=== PATIENT | female | born 1960 | race Caucasian/White ===

== ENCOUNTER 2022-02-27 06:32 | Inpatient (IN) | payer OTHER ==
[~2022-02-27] VITALS: Ht 167.6 cm; Wt 111.8 kg
[~2022-02-27 06:32] MED LIST: ESSENTIAL DAIL1 EACH PO; KONDREMUL2.5 ML/5 M PO; MOTRIN IB200 MG PO; NEURONTIN300 MG PO; NORCO 5-325 TA1 EACH PO; PERCOCET 5-3251 EACH PO; PROBIOTIC1 EAC1 PO; REGLAN10 MG PO; SENOKOT-S TABL1 EACH PO; TURMERIC500 M1 PO; VIACTIV SOFT C1 EACH PO
--- OUTSIDE RECORDS SUMMARY | 2022-02-27 06:35 | XMS ---
PreManage Notification: ESTELA SANCHEZ [facility] Events No recent Security Events currently on file [facility] There are no care providers on record at this time. Radha has no Care Guidelines for this patient. Ketan VISIT COUNT (12 MO.) 1 SAMUEL De La [place] TOTAL 1 NOTE: Visits indicate total known visits. ED/UCC VISIT TRACKING (12 MO.) 02/27/2022 06:33 SAMUEL Felix OR TYPE: Emergency COMPLAINT: - ABD PAIN, NAUSEA, SHIVERS, DIARRHEA INPATIENT VISIT TRACKING (12 MO.) No inpatient visits to display in this time frame [email or web address]
[2022-02-27] MEDS ORDERED: CIPRO500 MG PO (08:22)
[2022-02-27] MEDS ORDERED: METRONIDAZOLE500 MG PO ×2 (08:22→08:40)
--- NOTE | 2022-02-27 10:45 | NUR ---
Pt arrives to [facility] unit via stretcher, is able to transfer self to bed with somewhat unsteady gait, supervision recommended. IVF infusing WNL. VSS, A+O. Pt denies pain at this time. Hx and assessment complete. Ice water + ice chips provided per current diet order. Pt at bedside. Pt oriented to room/unit/call light system.
--- NOTE | 2022-02-27 13:18 | NUR ---
Call light answered, IV pump alarming, distal occlusion resolved. Pt states pain 4-5/10, 0.5mg dilaudid administered. IVF infusing WNL. Pt states that she feels "like I have a fever", oral temp 100.7. Pt tolerating small amounts clear liquid at this time. at bedside, both state no further needs. Call light in reach.
--- NOTE | 2022-02-27 13:43 | NUR ---
PT RESTING IN BED, LIGHT OFF AND RM QUIET. PT IS AWAKE, GAVE COMFORT AND BLESSING. WILL CONTINUE TO FOLLOW
--- NOTE | 2022-02-27 14:00 | NUR ---
It was a pleasure today to visit with Saima and her Tay. Both Saima and Tay are aware of her reason for admission, that she is receiving IV antibiotics and pain medication. Saima reports that the pain medicine "is really helping." Both Saima and Tay express appreciation for the care that Saima is receiving on the medical floor, and the care she did receive in the emergency department, expressing appreciation for the nurses and the ED physician. Saima is awake, alert, and oriented to person, place and time, and she is able to answer questions appropriately. Both Saima and Tay deny questions or needs at this time.
--- NOTE | 2022-02-27 14:18 | NUR ---
Scheduled ABX infusing. Pt resting in bed, eyes closed, awakens to this RN entry. Pt states no pain at this time. Assessment complete. Bowel tones active. Small amount PO intake of water noted. Pt states no nausea, no needs at this time.
--- NOTE | 2022-02-27 15:33 | NUR ---
Rounded on patient with Dr Walker. Pt states pain controlled at this time, SCDs in place, IVF infusing WNL. at bedside. All questions answered, call light in reach.
--- NOTE | 2022-02-27 16:47 | NUR ---
This RN called Dr Morales regarding order for PRN tylenol for pt temperature, new orders received and entered after verifying
--- NOTE | 2022-02-27 17:25 | NUR ---
PO tylenol and PRN dilaudid administered for 5/10 pain. Clear liquid tray at bedside. Pt resting in bed with IVF infusing WNL.
--- NOTE | 2022-02-27 19:39 | NUR ---
REPORT RECEIVED AT [facility]. PT IS AWAKE AND ALERT. IVF RUNNING. PT STATES HER PAIN IS MUCH BETTER AFTER TORADOL AND DILAUDID. CALL LIGHT IN REACH.
--- NOTE | 2022-02-27 20:15 | NUR ---
PT'S BP IS BELOW MD PARAMETERS. LEFT MESSSAGE FOR DR ROBINS ON HIS CELL PHONE OF PT SBP = 89.
--- NOTE | 2022-02-27 21:23 | HP ---
[facility] [address], [place] [address] Signed ADMISSION DATE: 02/27/2022 REASON FOR ADMISSION: Acute diverticulitis with microperforation. HISTORY OF PRESENT ILLNESS: This 61-year-old white woman is well known to me from the past. 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 She presented to the emergency room today at approximately 7:30 in the morning, was evaluated by Dr. Stratton. She has had complaints of left lower abdominal pain since yesterday. Evaluation showed an elevated white count of 16.6 and normal Chem profile and a CT scan of the abdomen was performed confirming acute diverticulitis. There was a small pocket of extraluminal gas, which was considered probably a small abscess. Interpreting radiologist was Dr. Falcon. The patient has been started initially on Cipro and Flagyl orally by Dr. Stratton and subsequently cefoxitin under my direction. Her pain is much improved with parenteral pain medication. She has had some nausea, but no vomiting. She has been allowed some clear liquids for comfort. PAST MEDICAL HISTORY: Does include obesity. 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 She has had emergency in the past. SOCIAL HISTORY: She is accompanied by her . 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 She has several grown children. REVIEW OF SYSTEMS: She denies any shortness of breath or chest pain. She has had no dysphagia, dysuria, or blood per rectum. PHYSICAL EXAMINATION: GENERAL: Pleasant white woman, who does not look systemically toxic at this time. VITAL SIGNS: Height is 5 feet 6 inches, weight 111.8 kg, BMI is 39.8. HEENT: Trachea is midline. She has no hoarseness. CHEST: Shows normal respiratory excursion. Electronically Signed By: RENNY ROBINS MD 02/27/22 2123 PATIENT NAME: ESTELA SANCHEZ HISTORY AND PHYSICAL DATE OF : 58 REPORT #: [id number] PHYSICIAN: RENNY ROBINS MD PCP: GIOVANI SINGH MD REPORT IS CONFIDENTIAL AND NOT TO BE RELEASED WITHOUT AUTHORIZATION [facility] [address], [place] [address] Signed HEART: Regular. ABDOMEN: Obese. She has a low midline incision, which is well healed. She has significant tenderness in the left lower quadrant. Right side is normal. She has no ascites. EXTREMITIES: Showed no clubbing, cyanosis, or edema. LABORATORY STUDIES: Showed white count of 16.6, hematocrit 45.8, platelets 279,000. Chem profile is normal. Glucose is 146, alkaline phosphatase 127, total protein 7.3, lipase 46. Urinalysis is normal. CT scan is reviewed as well as the report by Dr. Falcon, radiologist confirming normal lungs, liver, gallbladder, spleen, and other intraabdominal organs. There was no sign of free fluid or generalized free air. Inflammatory fat stranding was noted in the left pelvis adjacent to the sigmoid, where numerous diverticula are noted. A 15-mm bubble of gas is extraluminal consistent with small perforation. ASSESSMENT: Clinical findings and radiographic findings are highly consistent with acute diverticulitis with localized microperforation. She does not have generalized free air. She certainly does have tenderness. IV antibiotics have been initiated anticipating nonoperative approach at the moment. Sequential compression device stockings will be applied. We will allow clear liquids for comfort. We discussed the probability that showed having progressive improvement for which transition of oral antibiotics will be undertaken in due course. If worsening symptoms are noted, possibility of laparoscopic lavage and placement of drain versus emergency resection of sigmoid were also discussed though briefly as it is rather unlikely under the circumstances. Ultimately, she will need colonoscopy to affirm that there is no associated perforation of malignancy. She understands all these approaches and wished to proceed as we have described. MD SOURAV Kelley/MODL Electronically Signed By: RENNY ROBINS MD 02/27/222122 PATIENT NAME: ESTELA SANCHEZ HISTORY AND PHYSICAL DATE OF : 58 REPORT #: [id number] PHYSICIAN: RENNY ROBINS MD PCP: GIOVANI SINGH MD REPORT IS CONFIDENTIAL AND NOT TO BE RELEASED WITHOUT AUTHORIZATION [facility] [address], [place] [address] Signed /[id number] cc: Thomas Stratton MD Copies: THOMAS STRATTON MD ~ Electronically Signed By: RENNY ROBINS MD 02/27/222122 PATIENT NAME: ESTELA SANCHEZ HISTORY AND PHYSICAL DATE OF : 58 REPORT #: [id number] PHYSICIAN: RENNY ROBINS MD PCP: GIOVANI SINGH MD REPORT IS CONFIDENTIAL AND NOT TO BE RELEASED WITHOUT AUTHORIZATION
--- NOTE | 2022-02-27 23:17 | NUR ---
PT'S BP WAS 85/46 WITH A MAP OF 55. PT HAD SOME DIZZINESS WITH GETTING UP TO THE BATHROOM. DR ROBINS WAS CALLED AND A MESSAGE LEFT FOR HIM ON HIS CELL PHONE.
--- NOTE | 2022-02-28 02:05 | NUR ---
PT'S BP IS BACK TO NORMAL. PT DID NOT HAVE ANY DIZZINESS WHEN ASSISTED UP TO THE BATHROOM. HER PAIN IS 3/10 AND SHE WAS GIVEN IV TORADOL FOR THIS. A WARMED BLANKET WAS APPPLIED. PT REQUESTED AND WAS GIVEN AN ICE PACK FOR HER HEADACHE.
--- NOTE | 2022-02-28 05:40 | NUR ---
ASSISTED PT TO BATHROOM TO VOID, PAIN UPON MOVEMENT, BUT ONCE IN BED, VS COMPLETED, PT STATED THAT PAIN WAS IMPROVED AND DENIED PAIN NEEDS. SCD'S IN PLACE, FRESH ICE WATER GIVEN. COVERS PER CHOICE, PERSONAL SUPPLIES WITHIN REACH. NO OTHER NEEDS AT THIS TIME.
--- NOTE | 2022-02-28 06:36 | NUR ---
PTP UP TO BATHROOM WITH SBA. PT TOLERTAED THIS WELL. WARMED BLANKET APPLIED AFTER GETTING BACK TO BED. CALL LIGHT IN REACH.
--- NOTE | 2022-02-28 07:15 | NUR ---
Report received from Leni NOEL. Pt resting in bed, IV pump alarming, resolved. Pt states no needs at this time, denies pain. Call light in reach, will continue plan of care.
--- NOTE | 2022-02-28 07:55 | NUR ---
Scheduled medications administered, PRN toradol given, pt oral temperature 101.8. Pt ambulated to with SBA, IVF infusing WNL. Lung sounds clear, HRR, bowel tones active. Tolerating small amounts of clear liquids. Linens changed. Pt has no further needs at this time, call light in reach
--- NOTE | 2022-02-28 09:50 | NUR ---
Pt medicated with PRN tylenol for low grade fever of 99.8
--- NOTE | 2022-02-28 10:51 | NUR ---
CHECKING ON PT-WRAPPED UP IN BEDDING. PT SAID SHE IS FEVERISH, AND SLIGHT NAUSEA. INFORMED BERT MORALES, SHE WILL FOLLOW UP. GAVE ENCOURAGEMENT, BLESSING
--- NOTE | 2022-02-28 11:45 | NUR ---
Spoke with Saima. She cont. to not feel well. States she has fever and has pain.
--- NOTE | 2022-02-28 11:45 | NUR ---
Pt provided with ice pack for comfort, daughter at bedside, request bedside fan, provided. IVF infusing WNL. No needs at this time.
--- NOTE | 2022-02-28 14:36 | NUR ---
Rounded on patient who is resting in bed, daughter at bedside. She states pain or needs at this time. IVF infusing WNL. Call light in reach.
--- NOTE | 2022-02-28 15:46 | NUR ---
Patient c/o feeling hot then chilled. States care has been good today. States that her pain level "is good right now" Shares that if she calls and asks staff is bringing medications to relieve pain. has not been here yet today, but states that he will be in later. She understands her plan of care based on what Dr. Walker has explained to her at this time. Pt denies concerns beyond her fever at this time. Pt RN is notified regarding fever for medication management.
--- NOTE | 2022-02-28 15:50 | NUR ---
Notified of patient temperature. IV toradol administered, cool cloth for forehead, blankets removed, and pt demonstrates using I.S. several times. Will round to check temperature shortly.
--- NOTE | 2022-02-28 16:13 | NUR ---
Pt temperature down to 100.4. Pt resting in bed with cool cloth over eyes. Pt states "I feel like I'm coming down now", reports no pain.
--- NOTE | 2022-02-28 16:32 | NUR ---
Notified Dr Walker regarding pt temperature fluctuation.
--- NOTE | 2022-02-28 18:42 | NUR ---
Pt finished with shower and reconnected to IVF, infusing WNL. Temp WNL. Pt states no pain or nausea and no needs. Tray cleared. at bedside. Call light in reach.
--- NOTE | 2022-02-28 19:27 | NUR ---
REPORT RECEIVED ON PT . SHE DENIES PAIN. IS AWAKE AND ALERT. IV IS PATENT. CALL LIGHT IN REACH. NO NEEDS AT THIS TIME.
--- NOTE | 2022-02-28 20:15 | NUR ---
PT IS ASSISTED UP TO THE BATHROOM. GAIT IS STEADY. DENIES ANY DIZZINESS. SHE IS VOIDING FREELY.PT STATES HER PAIN IS 1-12 AFTER AMBULATING AND DOES NOT REQUIRE ANYTHING FOR PAIN. PT FEELS THOUGH SHE MAY HAVE A BM AND REQUESTED THE SCDS OFF FOR NOW. CALL LIGHT IN REACH.
--- NOTE | 2022-02-28 23:22 | NUR ---
PT C/O HEADACHE AND RIGHT SIDED ABD PAIN .RATED HER PAIN 5/10. PT WAS GIVEN TYLENOL AND TORADOL FOR PAINS. SHE WAS ALSO GIVEN AN ICE PACK FOR THE BACK OF HER NECK FOR COMFORT. PT REPORTED SOME SLIGHT NAUSEA BUT REFUSED AN ANTIEMETIC. CALL LIGHT IN REACH.
--- NOTE | 2022-03-01 01:03 | NUR ---
PT APPEARS TO ASLEEP LYING ON HER LEFT SIDE. CALL LIGHT IN REACH.
--- NOTE | 2022-03-01 06:47 | NUR ---
PT HAS NOT SPIKED A TEMP THIS SHIFT. HER VITAL SIGNS HAVE BEEN STABLE. SHE HAS VOIDED ORANGE COLORED URINE AND HAD SEVERAL SMALL LOOSE BMS. PT WAS MEDICATED FOR PAIN WITH TORADOL X1 DOSE WITH EFFECTIVE PAIN RELIEF. SHE IS REQUESTING HER GABAPENTIN BE RESTARTED. PT HAS TOLERATED HER ORAL ABX.
--- NOTE | 2022-03-01 08:40 | NUR ---
PT ASSESSMENT COMPLETED. MEDICATIONS GIVEN. TYLENOL GIVEN FOR STONE. PT IS A/O. CALL LIGHT WITHIN REACH.
--- NOTE | 2022-03-01 10:09 | NUR ---
PT RESTING COMFORTABLY. A/O, CALL LIGHT WITHIN REACH. DISCUSSED POSSIBILITY OF DOING LAB WORK THIS MORNING AND RESTARTING GABAPENTIN 300MG PO AT NIGHT. THIS RN LEFT MESSAGE WITH DR SHELBY OFFICE REGARDING [facility] AND RESTARTING GABAPENTIN.
--- NOTE | 2022-03-01 10:28 | NUR ---
BROUGHT PATIENT A NEW CUP OF ICE WATER ALSO SOME CRANBERRY JUICE.
--- NOTE | 2022-03-01 10:40 | NUR ---
ASKED PATIENT IF SHE WOULD LIKE TO TAKE A SHOWER TODAY AND SHE SAID NO BECAUSE SHE TOOK A GOOD ONE YESTERDAY.
--- NOTE | 2022-03-01 12:00 | NUR ---
Spoke with pt and she states she is feeling better. No change in plan for dc to home with spouse when cleared medically.
--- NOTE | 2022-03-01 12:06 | NUR ---
TO PT ROOM FOR MEDICATION ADMINISTRATION. PT A/O, T 98.2. PLANNING ON WALK IN THE KNOW[place] TODAY. CALL LIGHT WITHIN REACH. DAUGHTER AT BEDSIDE.
--- NOTE | 2022-03-01 13:41 | NUR ---
PT SITTING UP IN BED VISITING WITH DAUGHTER CARLA AT . PT STATED SHE FEELS BETTER TODAY. HAD PLEASANT VISIT-PT ALERT AND ORIENTED. GAVE BLESSING, WILL FOLLOW
--- NOTE | 2022-03-01 15:00 | NUR ---
TO PT ROOM FOR ASSESSMENT. PROVIDER ORDERED [facility]. LABS DRAWN. AT BEDSIDE. CALL LIGHT WITHIN REACH.
--- NOTE | 2022-03-01 15:47 | NUR ---
PATIENT WALKED 2 LAPS AROUND MED SURG THIS MORNING. AND ONE LAP AROUND MED SURG. WITH HER GUEST. THIS AFTERNOON.
--- NOTE | 2022-03-01 15:50 | NUR ---
PT REQUEST FOR TEMP CHECK AFTER WALKING LAPS IN THE KNOWLES FELT CHILLED. T 99.4. ALSO STATED ABDOMINAL PAIN INCREASED TO 6/10. TORADOL GIVEN. PT RESTING ON LEFT SIDE IN BED. AT BEDSIDE. CALL LIGHT WITHIN REACH. IV FLUIDS RUNNING.
--- NOTE | 2022-03-01 19:53 | NUR ---
RECEIVED REPORT FROM DAY SHIFT RN. PATIENT IS RESTING IN BED ON PHONE. NO NEEDS NOTED. CALL LIGHT IN REACH.
--- NOTE | 2022-03-01 20:02 | NUR ---
IV PUMP ALARMING, NEW BAG IV FLUIDS HUNG AND INFUSING DIRECTED. IV SITE WNL, pt DENEIS NEEDS OR CONCERNS. CALL LIGHT IN REACH. PRIMARY RN AWARE.
--- NOTE | 2022-03-01 20:42 | NUR ---
PATIENT ASSESEMENT COMPLETED. VITALS TAKEN AND RECORDED. INTAKE AND OUTPUT RECORDED. PM MEDS GIVEN PER ORDER. PATIENT DENIES ANY PAIN OR NAUSEA. IV INFUSING PER ORDER. PATIENT HAS ACTIVE BOWEL TONES. PATIENT IS RESTING IN BED. PATIENT DENIES ANY FURTHER NEEDS. CALL LIGHT IN REACH. PATIENT IS AAOX4.
--- NOTE | 2022-03-01 23:00 | NUR ---
PATIENT REPORTS FEELING "YUCKY". PATIENTS TEMP TAKEN AND RECORDED. PATIENT GIVEN PRN TYLENOL. PATIENT GIVEN SEVEN UP AND CRACKERS. NO FURTHER NEEDS NOTED. CALL LIGHT IN REACH.
--- NOTE | 2022-03-02 01:22 | NUR ---
PATIENT IS RESTING IN BED WITH EYES CLSOED, RR 16. CALL LIGHT IN REACH.
--- NOTE | 2022-03-02 02:09 | NUR ---
PATIENT IS RESTING IN BED WITH EYES CLSOED, RR 18. CALL LIGHT IN REACH.
--- NOTE | 2022-03-02 04:26 | NUR ---
PATIENT CALLED AND REQUESTED TEMP BE TAKEN. PATIENTS TEMP IS 98.9 ORALLY. PATIENT RECENTLY UP TO BR AND HAD BM. PATIENT RATES PAIN AT A 2/10 AND DENIES THE NEED FOR PAIN MEDICATION AT THIS TIME. PATIENT DENIES ANY NAUSEA. NO FURTHER NEEDS NOTED. CALL LIGHT IN REACH.
--- NOTE | 2022-03-02 05:29 | NUR ---
AM VITALS TAKEN AND RECORDED. INTAKE AND OUTPUT RECORDED. PATIENT DENIES ANY PAIN. PATIENT REPORTS FEELING "YUCKY". TEMP AT 99.1 PATIENT STATED "I FEEL LIKE ITS GONNA GO HIGHER", PRN TYLENOL GIVEN PER ORDER. FRESH ICE WATER GIVEN. IV INFUSING PER ORDER. NO FURTHER NEEDS NOTED. CALL LIGHT IN REACH.
--- NOTE | 2022-03-02 07:22 | NUR ---
REPORT RECEIVED FROM BERT SMART. PT RESTING IN BED ON LEFT SIDE WITH EYES CLOSED. RESPIRATIONS EVEN AND UNLABORED. BED RAILS UP. CALL LIGHT WITHIN REACH. PT ALLOWED TO REST.
--- NOTE | 2022-03-02 07:30 | NUR ---
PT CALL LIGHT ON. PT REQUESTS ASSTANCE FINDING HER GLASSES. PT ASSISTED. PT UPDATED ON PLAN FOR DISCHARGE. PT REQUESTS TO GET DRESSED. IV DC'D PER PROTOCOL. GAUZE AND COBAN APPLIED. PT UP IN ROOM, NO ASSISTANCE NEEDED, STEADY ON FEET. CALL LIGHT WITHIN REACH. PT UPDATEDON PLAN FOR DISCHRAGE. PT VERBALIZES UNDERSTANDING AND STATES HER QUESTIONS HAVE BEEN ANSWERED. NO ADDITIONAL NEEDS AT THIS TIME.
--- NOTE | 2022-03-02 08:46 | NUR ---
MORNING ASSESSMENT AND MEDICATION DUE. PT UP TO COUCH EATING BREAKFAST. PT DENIES PAIN AND NAUSEA "UNLESS I PUSH ON IT." PT REPORTS 2/10 PAIN IN LLQ OF ABDOMEN IF SHE PUSHES ON THIS AREA. PT STATES "OH, IT'S A LOT BETTER THAN IT WAS." PT REQUESTS HER TEMPERATURE BE ASSESSED, 98.1 ORALLY. PT ALERT AND OREINTED TO ALL. PT STEADY ON FEET WITH NO ASSISTANCE NEEDED WHILE IN THE ROOM. LUNG SOUNDS CLEAR. HEART TONES REGULAR. STRONG PULSES NOTED IN ALL EXTREMITIES. LLE REMAINS NUMB PER PTS BASELINE. NON SLIP SOCKS IN PLACE. BOWEL TONES ACTIVE. ABOMDEN SOFT. PT REPORTS ONE LOOSE STOOL "EARLY THIS MORNING." PT REPORTS MILD DISTENTION TO ABOMDEN CONTINUES. PT ON THE PHONE WITH HER WHO IS COMING TO PICK HER UP. PHARMACIST TO BEDSIDE TO REVIEW MEDICAITONS WITH PT. PT DENIES ADDITONAL NEEDS AT THIS TIME. CALL LIGHT WITHIN REACH.
--- NOTE | 2022-03-02 09:52 | NUR ---
PT READY FOR DISCHARGE. PT DRESSED SELF, NO ASSISTANCE NEEDED. PT RESTING IN BED, ON LEFT SIDE, PT REPORTS 6/10 PAIN IN LEFT LOWER QUADRANT. PAIN MEDICAITON OFFERED. PT DECLINES STATING SHE WILL "TAKE IBUPROFEN WHEN I GET HOME." DISCHRAGE INSTRUCTIONS REVIEWED WITH PT. PT VERBALIZES UNDERSTANDING OF INSTRUCTIONS, MEDICATIONS AND FOLLOW UP AND STATES HER QUESTIONS HAVE BEEN ANSWERED. PT DENEIS ADDITIONAL NEEDS AT THIS TIME. AWAITING 'S ARRIVAL. CALL LIGHT WITHIN REACH.
--- NOTE | 2022-03-02 10:24 | NUR ---
DISCHARGE ORDER WRITTEN FOR PATIENT. PATIENT TO DISCHARGE HOME WITH HER FAMILY TODAY.
--- NOTE | 2022-03-02 10:45 | NUR ---
PTS ARRIVED. PT REPORTS SHE WOULD LIKE TO REST FOR A FEW MORE MINUTES PRIOR TO DISCHRAGE. PT RPEORTS PAIN IN LLQ CONTINUES AT 5-6/10. PT STATES SHE TOOK A HOME DOES OF IBUPROFEN AND WANTS TO SEE "IF IT KICKS IN." PT ADVISED NOT TO TAKE MEDICATIONS FROM HOME WITHOUT LETTING STAFF AND MD KNOW. PT VERBALIZES UNDERSTANDING. PT ALOWED TO REST. CALL LIGHT WITHIN REACH. BED RAILS UP. AT BEDSIDE.
--- NOTE | 2022-03-02 10:50 | NUR ---
PT ALERT, ORIENTED AND RESTING COMFORTABLY IN QUIET RM. REQUESTED LIGHTS OFF. PLAN TO DC TODAY, WILL BE HERE FOR DC. GAVE BLESSING AND WILL FOLLOW.
--- NOTE | 2022-03-02 10:50 | NUR ---
PATIENT AND IN ROOM. SHE MAY GO HOME TODAY BUT SHE MAY DECIDE TO STAY BECAUSE OF ABDOMINAL PAIN. I PROVIDED HER A HANDOUT FROM THE [facility] ON FIBER-RESTRICTED DIET. LISTS WITH FOODS RECOMMENDED AND FOODS NOT RECOMMENDED PROVIDED. SAMPLE MENUS ALSO PROVIDED. VERBAL REVIEW OF SOME FOODS TO AVOID AND WHICH FOODS WOULD BE FINE. I ALSO EXPLAINED THIS DIET IS TEMPORARY. IT IS TO ALLOW THE GUT TO HEAL. PATIENT AND HAVE GOOD UNDERSTANDING. MY NAME AND OFFICE # PROVIDED IN CASE FURTHER QUESTIONS ARISE.
[2022-03-02] MEDS ORDERED: CIPRO500 MG PO (11:17)
[2022-03-02] MEDS ORDERED: FLAGYL375 MG PO (11:18)
--- NOTE | 2022-03-02 11:18 | NUR ---
THIS RN TO ROOM TO CHECK ON PT. PT STATES HER HOME IBUPROFEN "DIDN'T WORK WELL I HAD HOPED." PT RATES LLQ PAIN AT 5/10. LLQ TENDER TO TOUCH. DR. RHODES CALLED AND UPDATED. NEW ORDERS PLACED. PT ADVISED THAT MD RECCOMENDS SHE STAYS TO RECEIVE FURTHER TREATMENT. ORDERS ENTERED AND REPEAT BACK PERFORMED.
--- NOTE | 2022-03-02 11:49 | NUR ---
NEW MEDICATIONS READY. IV STARTED IN RIGHT HAND PER PROTOCOL, BRISK BLOOD RETURN NOTED. IV FLUIDS AND ABX STARTED. PT REPORTS ONGOING 5/10 PAIN IN LLQ THAT IS "SQUEEZING TWISTING PAIN." TYELNOL GIVEN. ORDERS TO MAKE PT NPO. PT MADE NPO AFTER TYLENOL DOSE. PT UPDATED ON PLAN OF CARE AND VERBALIZES UNDESTANDING. PT STATES SHE FEELS "BETTER ABOUT STAYING." BOWEL TONES ACTIVE ALTHOUGH HYPOACTIVE IN LLQ. MILD DISTENTION CONTINUES. ABDOMEN SOFT BUT TENDER ESPICIALLY IN LLQ. PT DENEIS ADDITONAL REQUESTS OR COMPLAINTS. AT BEDSIDE AND VERBALIZES UNDERSTANDING OF PLAN OF CARE. NO ADDITIONAL NEEDS AT THIS TIME. CALL LIGHT WITHIN REACH. BED RAILS UP.
--- NOTE | 2022-03-02 12:15 | NUR ---
DR RHODES CALLED WITH UPDATE ON PT AND TO CLARIFY ORDERS PER PHARMACIST. NO ANSWER AT THIS TIME. AWAITING CALL BACK.
--- NOTE | 2022-03-02 13:18 | NUR ---
AFTERNOON ASSESSMENT DUE. THIS RN TO ROOM TO CHECK ON PT. PT CONTINUES RESTING ON LEFT SIDE IN BED. PT REPORTS PAIN IS IMPROVING IN LLQ OF ABDOMEN AND "WAS BETTER WITH REST BUT THEN WORSE WITH MY BOWEL MOVEMENT." PT REPORTS 3/10 PAIN IN LEFT LOWER QUADRANT. PT DENIES NEED FOR ADDTIONAL PAIN MEDICATION AT THIS TIME. PT DENIES NASUEA. PT ALERT AND OREINTED TO ALL. HEART TONES REGULAR. LUNG SOUNDS CLEAR. NUMBNESS TO LLE CONTINUES PER PT BASELINE. +1 PITTING EDEMA NOTED IN LLE WELL. PT STATES "YEAH MY LEFT LEG IS USUALY ABOUT AN INCH BEGGER THAN THE RIGHT." ABDOMEN REMAINS SOFT. MILDY DISTENDED PER PT. BOWEL TONES ACTIVE BUT HYPOACTIVE IN LLQ. ABDOMEN REMAINS TENDER IN LLQ WITH PALPATION. PT VOIDING LARGE AMOUNTS OF CLEAR YELLOW URINE. VITAL SIGNS STABLE. REDNESS NOTED UNDER PANNUS. BARRIER CREAM APPLIED. ICE WATER PROVIDED. PT UPDATED ON PLAN OF CARE. NO ADDITONAL REQUESTS OR COMPLAINTS. CALL LIGHT WITHIN REACH. AT BEDSIDE.
--- NOTE | 2022-03-02 14:16 | NUR ---
MEDICATION DUE. THIS RN TO ROOM TO CHECK ON PT. PT UP TO RESTROOM, INDEPENDANT, NO ASSISTANCE NEEDED, STEADY ON FEET. PT REPORTS PAIN IS "MUCH BETTER" NOW 2/10 IN LEFT LOWER QUADRANT. PT DENIES NEED FOR ADDITIONAL PAIN MEDICATION. IV ASSESSED, WNL. IV ABX STARTED. NO ADDITIONAL REQUESTS OR COMPLAINTS. CALL LIGHT WITHIN REACH. BED RAILS UP.
--- NOTE | 2022-03-02 15:25 | NUR ---
THIS RN TO ROOM TO CHECK ON PT. PT GETTING SELF UP TO RESTROOM. PT PASSES LARGE AMOUNTS OF GAS AND HAS SMALL BOWEL MOVEMENT. PT REPORTS PAIN IS WELL CONTROLED AT 3/10 IN LEFT LOWER QUADRANT. PT DENIES NEED FOR PAIN MEDICATION AT THIS TIME. PT DENIES NASUEA. PT BACK TO BED. NO ADDITONAL REQUESTS OR COMPLAINTS. CALL LIGHT WITHIN REACH. AT BEDSIDE.
--- NOTE | 2022-03-02 15:58 | NUR ---
PT SCHEDULED FOR DISCHRAGE THIS SHIFT BUT BEGAIN TO HAVE WORSENING SYMPTOMS, PT CONTINUES TO STAY INPATIENT FOR ACUTE DIVERTICULITIS. PT UP WITH STAND BY ASSIST AND INDEPENDANT IN ROOM. PT NOW ON CLEAR LIQUID DIET FOR BOWEL REST. BOWEL TONES ACTIVE, ABDOMEN SOFT BUT TENDER TO TOUCH. BOWEL MOVEMENTS LESS FREQUENT THIS SHIFT ALTHOUGH STILL SOFT/LOOSE. PT REPORTS 0-6/10 PAIN IN LLQ THIS SHIFT, CONTROLED WITH TYELNOL. PT ALSO NOTED TO HAVE TAKEN A HOME DOES OF IBUPROFEN THIS SHIFT, EDUCATION DONE. IV FLUIDS STARTED. IV ABX ORDERED. PT VOIDING QUANITTY SUFFICIENT. PT USES CALL LIGHT AND MAKES NEEDS KNOWN.
--- NOTE | 2022-03-02 17:02 | NUR ---
THIS RN TO ROOM TO CHECK ON PT. PT REPORTS ABDOMINAL PAIN IN LLQ HAS INCREASED AND IS NOW /. PT REPORTS THIS INCREASE "JUST HAPPENED RECENTLY." TORADOL NO LONGER ON OCT. DR. RHODES CONSULTED AND STATES TO ADD TORADOL BACK TO OCT, ORDERS ENTERED AND REPEAT BACK PERFORMED. TRISH LUCAS CALLED FOR CLARIFICATION AND TO ENSURE ONLY 5 DAYS OF TORADOL IS SCHEULED. DR. RHODES ALSO CONSULTED REGARDING REDNESS UNDER PANNUS. ORDERS FOR MICONAZOLE POWDER GIVEN. PT UP TO RESTROOM INDEPENDANTLY. PT REPORTS NASUEA "PROBABLY FROM THE PAIN." SEE MAR FOR MEDICATIONS GIVEN. PT DENIES ADDITIONAL REQUESTS OR COMPLAINTS. CALL LIGHT WITHIN REACH. BED RAILS UP.
--- NOTE | 2022-03-02 17:50 | NUR ---
THIS RN TO ROOM TO CHECK ON PT. PT CONTINUES TO HAVE 8-10/10 PAIN IN ABODMEN AND NAUSEA. SEE MAR FOR MEDICATION GIVEN. BOWEL TONES HEARD. ABDOMEN NOW APPEARS MODERATLY DISTENDED. PT PALE. VITAL SIGNS STABLE. PT TEARFUL AT TIMES. DR. RHODES CALLED AND UPDATED. NEW ORDERS GIVEN FOR CT SCAN WITH CONTRAST. ORDERS ENTERED. REPEAT BACK PERFORMED. PT UPDATED ON PLAN OF CARE. PT RESTING ON LEFT SIDE, NO ADDITONAL NEEDS AT THIS TIME. CALL LIGHT WITHIN REACH.
--- NOTE | 2022-03-02 18:05 | NUR ---
DR RHODES CALLED TO FLOOR WITH VERBAL ORDERS FOR STAT CBC AND CBC AT 0600 TOMORROW. READ BACK FOR VERIFICATION DONE. ORDERS PLACED.
--- NOTE | 2022-03-02 18:15 | NUR ---
GASTROGRAPHEN GIVEN ORDERED. PTS TEMPERATURE NOTED TO BE RISING. PT HAS SHAKING RIGERS CHILLS. DR. RHODES CALLED AND UPDATED AND ORDERS PLACED FOR BLOOD CULTURES. NO LACTIC PER MD ORDER. LABS DRAWN PER PROTOCOL WITH 7ML DRAW USING 22G BUTTER FLY NEEDLE FROM RIGHT HAND FOR FIRST SET OF CULTURES. AND 15ML DRAW FROM LEFT AC FOR 2ND SET OF BLOOD CULTURES AND CBC. LABS SENT PER PROTOCOL. CT UPDATED ON TIMING OF GASTRO GRAPHEN. TYLENOL GIVEN (SEE MAR). PT RESTING IN BED. NO ADDITONAL NEEDS AT THIS TIME. CALL LIGHT WIHTIN REACH. BED RAILS UP.
--- NOTE | 2022-03-02 20:10 | NUR ---
IV PUMP ALARMING, ISSUE RESOLVED. IV SITE WNL, FLUSHES EASILY. BLOOD RETURN NOTED. pt SALINE LOCKED FOR ORDERED CT EXAM. VS AND I&O'S COLLECTED. pt COMPLETED SECOND AND FINAL ORAL CONTRAST. ASSESSMENT COMPLETE, pt REPORTS VERY MINIMAL ABD PAIN AND FEELS LIKE HER ABD DISTENTION IS IMPROVED. pt STATES, "I THINK IT FEELS A LITTLE SOFTER". ALSO IN ROOM. pt TRANSERRED SELF INTO WC AND BETHANIE FROM IMAGING TO TAKE pt FOR CT EXAM.
--- NOTE | 2022-03-02 20:40 | NUR ---
pt returned from imaging, awaiting results. eelvated temp noted, excess blankets removed and pt demonstrated use of is. cool rag to forehead and pt/ educated. both verbalized understanding. will continue to monitor temp. iv fluids resumed per md orders and iv abd infusing as directed. iv site remains wnl. fresh ice water provided, call light in reach.
--- NOTE | 2022-03-02 21:52 | NUR ---
DR RHODES MADE AWARE OF IMAGING RESULTS BY IMAGING DEPARTMENT. DR RHODES IN ROOM AND DISCUSSING POC OPTIONS WITH pt. NEW BAG IV FLUIDS INFUSING DIRECTED, IV SITE WNL. CALL LIGHT IN REACH.
--- NOTE | 2022-03-02 22:10 | NUR ---
VERBAL ORDER READ BACK FROM DR RHODES TO TITRATE IV FLUIDS-D5LR FROM 100MLS/HR TO 150MLS/HR AND TO MAKE pt NPO, OKAY TO TAKE SIP OF WATER W/ MEDS PER DR RHODES. FLUIDS TITRATED AT THIS TIME, IV SITE REMAINS WNL. pt NPO- DOG BEHAVIORIST UPDATED AT THIS TIME. DR RHODES ALSO MADE AWARE OF ELEVATED TEMP OF 100.4.
--- NOTE | 2022-03-02 23:06 | NUR ---
CALL LIGHT ANSWERED, pt WISHES TO HAVE SCD'S OFF AT THIS TIEM SO SHE CAN AMBULATE INDEPENDENTLY BACK AND FORTH TO ABTHROOM NEEDED, pt STEADY ON FEET. pt STATES, "I'M FEELING PRETTY GOOD RIGHT NOW", NO FURTHER NEEDS, CALL LIGHT IN REACH.
--- NOTE | 2022-03-03 00:01 | NUR ---
ROUNDED ON pt, pt AWOKE TO VOICE. TEMP CHECKED, RESULT OF 98.3. pt STATES, "I FEEL REALLY GOOD RIGHT NOW". NO ADDITIONAL NEEDS OR CONCERNS, CALL LIGHT IN REACH.
--- NOTE | 2022-03-03 01:05 | NUR ---
CALL LIGHT ANSWERED, pt AWAKE AND REPORTS INCONTINENT BM. KAYLA CARE DONE AND UPON ENTERING ROOM pt WAS FOUND AWAKE AND MAKING BED ON HER OWN. pt STATES, "I'M JUST SO SURPRISED BY HOW GOOD I FEEL RIGHT NOW". pt INTERACTIVE AND SMILING WITH STAFF. pt EDUCATED ON POC FOR REMAINING SHIFT AND NOT TO OVER WORK. PARTIAL BED CHANGE COMPLETE, NO NEW NEEDS OR CONCERNS. IV SITE REMAINS WNL, FLUIDS INFUSING DIRECTED. CALL LIGHT IN REACH. pt VOIDED 425MLS DARK YELLOW URINE.
--- NOTE | 2022-03-03 02:23 | NUR ---
rounded on pt, pt awoke to voice. denies pain and nausea, some abd tenderness noted with palpation. bowel tones active, scattered bruises noted to lower abd d/t antocoagulant injections. scd's remains off per pt request, education provided. no acute changes. scheduled iv abx infusing as directed, iv site reamsin wnl. call light in reach.
--- NOTE | 2022-03-03 06:05 | NUR ---
NEW BAG IV FLIDS HUNG AND INFUSING DIRECTED. IV SITE WNL, PRN NAUSEA MEDICATION GIVEN (SEE EMAR. VSS AND I&O'S COMPLETE. pt AFEBRILE. pt REMAINS NPO. PREOP EKG COMPLETE ALONG WITH PREOP [place]. COMPLETE BED LINEN CHANGE ALSO DONE. NO FURTHER NEEDS, CALL LIGHT IN REACH.
--- NOTE | 2022-03-03 06:40 | NUR ---
DR RHODES MADE AWARE OF MORNING LABS RESULTS- 3.3 POTASSIUM AND 1.[address] MD [address] PL[address] ORDERS.
--- NOTE | 2022-03-03 06:55 | NUR ---
ordered x1 iv magnesium infusing as directed, iv site remains wnl. pharmacy to mix ordered potassium then bring to floor.
--- NOTE | 2022-03-03 07:30 | NUR ---
THIS RN RECEIVED SHIFT REPORT FROM BERT ROTH. PATIENT GETTING UP TO THE RESTROOM WITH HER . PATIENT IS READY TO GO TO SURGERY AT 8AM.
--- NOTE | 2022-03-03 08:10 | NUR ---
OR STAF HERE TAKING PATIENT TO OR IN THE HOSPITAL BED. SCD'S IN PLACE. AM ANTIBIOTIC AND K+ RIDER SENT WITH OR STAFF TO BE GIVEN.
--- NOTE | 2022-03-03 11:14 | NUR ---
PATIENT HAS NO RETURNED FROM OR AT THIS TIME.
--- NOTE | 2022-03-03 12:28 | NUR ---
JUST INFORMED THIS PATIENT WILL BE GOING TO CCU ON RETURN FROM OR.
--- NOTE | 2022-03-03 12:54 | NUR ---
REPORT RECEIVED FROM BERT BRODERICK. AWAITINGS PTS ARRIVAL FROM PACU.
--- NOTE | 2022-03-03 13:13 | EKG ---
[facility] [address] [facility] [address] [place], [place] [address] Signed Normal sinus rhythm Normal ECG When compared with ECG of 28-JAN-2017 16:13, No significant change was found Confirmed by MICHAEL GASCA MD ([id number]) on 03/03/2022 1:12:55 PM Electronically Signed By: MICHAEL GASCA MD 03/03/22 1313 PATIENT NAME: ESTELA SANCHEZ Electrocardiogram DATE OF : 58 PHYSICIAN: MICHAEL GASCA MD REPORT #: [id number] REPORT IS CONFIDENTIAL AND NOT TO BE RELEASED WITHOUT AUTHORIZATION
--- NOTE | 2022-03-03 13:24 | NUR ---
PT ARRIVED FROM PACU. HEVER, PRODUCT MANAGENT INTERN, AT BEDSIDE WITH PT. REPORT RECEIVED FROM KEATON LAWSON, AND BERT KATHLEEN. TELEMETRY MONITORING PLACED. DR. RHODES CONSULTED REGARDING X-RAY FOR CENTRAL LINE PLACMENT VARIFICATION. ORDER PLACED. X-RAY CALLED. HEVER REMAINS AT PTS BEDSIDE FOR RECOVERY.
--- NOTE | 2022-03-03 13:35 | NUR ---
NG TUBE PLACED TO LOW INTERMITTANT SUCTION. X-RAY TO BEDSIDE FOR CENTRAL LINE AND NG TUBE PLACEMENT VARIFICATION.
--- NOTE | 2022-03-03 13:48 | NUR ---
03/03/22 1348 Debra Vázquez 1317-PATIENT TO ROOM 126 IN CCU ON 10L VIA MAKK. PATIENT IS NONAROUSABLE TO TACTILE STIMULI. PATIENT HAS AN OPA IN PLACE. THIS RN DOING JAW THRUST TO MAINTAIN AIRWAY. 1320-PATIENT OPENS EYES OCCASIONALLY. THIS RN DOING JAW THRUST TO MAINTAIN AIRWAY. PATIENT ON 10L VIA MASK. 1323-PATIENT OPENS EYES OCCAISONALLY. DOESNT FOLLOW COMMANDS, OPA REMAINS IN PLACE. HOB ELEVATED AND PILLOW ADJUISTED. JAW THRUST COMPLETE. 1325-PATIENT OPENS EYES THEN OPENS MOUTH AND OPA REMOVED. RESP EVEN AND UNLABORED. O2 SATS MID 90'S ON 10L VIA MASK. 1328-PATIENT 02 SATS DECREASE TO 83%. PATIENT ENCOURAGED TO TAKE DEEP BREATHS. O2 SATS INCREASE TO 92% ON 10L VIA MASK. 1330-PATIENT OPENS EYES OCCASIONALLY. RESP EVEN AND UNLABORED. 1337-PATIENT IS REACTIVE TO VERABL STIMULI. SHAKES HEAD NO WHEN ASKED ABOUT PAIN AND NAUSEA. 1340-PATIENT RESTING IN BED WITH EYES CLOSE. RESP EVEN AND UNLABORED. ON SATS IN THE MID 90'S ON 10L VIA MASK 1345-CCU NURSE CHANGING CENTRAL LINE DRESSING. DECREASED TO 6L VIA MASK. O2 SATS REMAIN IN THE MID 90'S. RESP EVEN AND UNLABORED.
--- NOTE | 2022-03-03 14:10 | NUR ---
HEVER, MARKETING SERVICES VICE PRESIDENT FINISHED WITH RECOVERY. REPORT RECEIVED FROM HEVER. PT AWAKEN AND ORENITED ALTHOUGH DROWSY. DR. RHODES TO BEDSIDE AND GIVES VERBAL ORDER THAT CENTRAL LINE IS OK TO USE AND NG TUBE IS CORRECTLY PLACED. PT EPORTS 4/10 PAIN IN LLQ, SEE MAR FOR MEDIATION GIVEN. IV SALINE SITE FLUSHED AND SALINE LOCKED, ALCOHOL CAP APPLIED. CENTRAL LINE ASSESSED, BRISK BLOOD RETURN NOTED FROM ALL LUMENS. IV FLUIDS AND CEFEPIME STARTED THROUGH BROWN LUMEN. METRONIDAZOLE STARTED THROUGH BLUE LUMEN. WHITE LUMEN SALINE LOCKED. PT REPORTS 2/10 SORE THRAOT. EDUCATION REGARDING NG TUBE COMPLETED. PT VERBALIZES UNDERSTANDING. LUGN SOUNDS CLEAR. HEART TONES REGULAR. MONITOR SHOWS NORMAL SINSU RYTHEM WITH HR IN THE 70'S. PT REMAINS ON 2L O2 BY SD TO MAINTAIN OXGYEN SATURATIONS ABOVE 90%. NG TUBE IN PLACE, VARIFIED BY DR. RHODES. NG TUBE TO LOW INTERMITTANT SUCTION AT THIS TIME. NO DRAINGE YET SEEN IN TUBE. NO MEASUREMENTS NOTED ON TUBE TO RECORD. SELFADHESIVE SECUREMENT DEVICE PLACED. LAUREN CATHETER IN PLACE, WNL, DRAINING CLEAR YELLOW URINE. SECURMENT DEVICE PLACED. MIDLINE INCISION WNL WITH GAUZE AND TAPE DRESSING IN PLACE, SMALL AMOUNT OF RED DRAINGE NOTED NEAR DISTAL/CAUDAL END ~10% OF DRESSING. DRAGAN DRAIN PUTTING OUT MODERATE AMOUNTS OF SEROUS ANGUINOUS FLUID. NO ADDITONAL NEEDS AT THIS TIME. CALL LIGHT WITHIN REACH. BED RAILS UP.
--- NOTE | 2022-03-03 15:19 | NUR ---
VITALS AND FOCUSED ASSESSMENT DUE. PT RESTING IN BED. DROWSY BUT ORIENTED. PT REPORTS 4/10 CRAMPING PAIN IN ABDOMEN AND REQUESTS ADDITIONAL PAIN MEDICATION. SEE MAR FOR MEDIATION GIVEN. MIDLINE DRESSING UNCHANGED. DRAGAN DRAIN CONTINUES DRAINING SEROUS ANGUINOUS FLUID. VITAL SIGNS STABLE. NO ADDITIONAL NEEDS AT THIS TIME. CALL LIGHT WITHIN REACH. BED RAILS UP.
--- NOTE | 2022-03-03 16:17 | NUR ---
VITALS AND ASSESSMENT DUE. PT CONTINUES RESTING IN BED WITH HEAD OF BED ELEVATED TO 33 DEGREES WITH EYES CLOSED. REPSRIATIONS EVEN AND UNLABORED. OXGYEN SATURATION AT 95% ON 2L O2 BY NC. PT AWAKENS TO VOICE AND MOVEMENT IN THE ROOM. PT RPEORTS 6/10 "CRAMPING" ABOMDINAL PAIN AND REQUESTS ADDITIONAL MEDICATION. SEE MAR FOR MEDICATION GIVEN. PT DROWSY BUT ORIENTED TO ALL. CENTRAL LINE REMAINS WNL, DRESSING INTACT WITH NO LOOSE EDGES OR DRAINAGE NOTED. BROWN LUMEN INFUSING, BLUE AND WHITE LUMENS SALINE LOCKED. LUNG SOUNDS CLEAR. PT WEANED TO ROOM AIR AND TOLERATING WITH OXGYEN SATURATIONS ABOVE 92%. PT REMAINS IN NORMAL SINUS RYTHEM. EDMEA IN BLE UNCHANGED. ABDOMEN REMAINS SOFT BUT TENDER TO TOUCH. NG TUBE IN PLACE WITH SCAN AMOUNTS OF BROWN FLUID NOTED IN TUBING. TUBE REMAINS INCERTED TO MARKER LINE ON TUBING WITH SECURMENT DEVICE IN PLACE. MIDLINE INCISION DRESSING UNCHANGED WITH SMALL AMOUNT OF RED SHADOWING TO DISTAL/CAUDAL END OF DRESSING. DRAGAN DRESSING ALSO SHOWS SMALL AMOUNT OF RED SHADOWING. 100ML SEROUSANGUINOUS DRAINAGE REMOVED FROM DRAGAN DRAIN. 900ML CLEAR YELLOW URINE REMOVED FROM LAUREN CATHETER. PT RETURNES TO RESTING WITH EYES CLOSED. RESPRATIONS EVEN AND UNLABORED. BED RAILS UP. CALL LIGHT WITHIN REACH.
--- NOTE | 2022-03-03 17:15 | NUR ---
VITALS AND FOCUSED ASSESSMENT DUE. PT AWAKE AND RESTING INB ED. PT ORIENTD TO ALL AND INTERACTING APPROPIRATLY. PT ABLE TO REPEAT BACK INFORMATION THAT IS TAUGHT TO HER. QUESTIONS ANSWERED ABOUT NG TUBE, WOUND, AND HEALING PROCESS. 30ML SEROUS ANGUINOUS DRAINAGE REMOVED FROM DRAGAN DRAIN. MIDLINE INCISION WNL WITH LIGHT RED SHADOWING NOTED AT CAUDAL/DISTAL END OF DRESSING FILLING ~25% OF DRESSING. DRAGAN DRESSING UNCHANGED WITH SMALL AMOUNT OF RED SHADOWING. BOWEL TONES HEAD IN UPPER QUADRANTS OF ABDOMEN. PT REPORTS CRAMAPING PAINS ARE "A LOT BETTER." NOW AT 3/10 IN LOWER ABDOMENT. PT DENIES NEED FOR ADDITIONAL PAIN MEDICAITON AT THIS TIME. ICE CHIPS PROVIDED. SMALL AMOUNT OF BROWN FLUID NOTED IN NG TUBING. ABDOMEN SOFT AND TENDER IN PLACES. PT CONTINUES TOELRATING ROOM AIR WITH OXGYEN SATURATIONS ABOVE 90%. NO ADDITONAL REQUESTS OR COMPLAINTS AT THIS TIME. CALL LIGHT WITHIN REACH. BED RAILS UP.
--- NOTE | 2022-03-03 18:08 | NUR ---
PT POST OP DAY ZERO FOR SIGMOID COLECTOMY. PT ARRIVED THIS AFTER NOON FROM MED/SURG VIA OR/PACU. PT REMAINS ON BED REST AND NPO THIS SHIFT. ICE CHIPS PROVIDED FOR COMFORT. MID LINE INCISION REMAINS WNL WITH ~25% SHADOWING NOTED TO DISTAL/CAUDAL END OF DRESSING. DRAGAN DRAIN IN PLACE AND PUTTING OUT MODERATE AMOUNTS OF SEROUS ANGUINOUS FLUID. NG TUBE IN PLACE TO LOW INTERMITTAN SUCTION WITH MINIMAL BROWN DRAINAGE NOTED. PT AFEBRIAL SO FAR THIS SHIFT. IV ABX GIVEN. TRIPPLE LUMEN RIGHT IJ CENTRAL LINE NOW IN PLACE, ALL LUMENS GIVING BLOOD RETURN, BROWN LUMEN INFUSING. BLUE AND WHITE SALINE LOCKED. ABDOMEN SOFT BUT TENDER TO PALPATION. PRN PAIN MEDICATIONS GIVEN FOR 3-7/10 PAIN (SEE MAR). PTS FAMILY AT BEDSIDE AND UPDATED ON PLAN OF CARE. LAUREN CATHETER NOW IN PLACE, QUANTITY SUFFICIENT. PT USES CALL LIGHT AND MAKES NEEDS KNOWN.
--- NOTE | 2022-03-03 18:35 | NUR ---
THIS RN TO ROOM TO CHECK ON PT. PT CALL LIGHT ON. PT REPORTS SHE IS FEELING HOT AND WOULD LIKE AN ICE PACK. ICE PACK PROVIDED. TEMPERATURE ASSSESSED AND FOUND TO BE 97.4 ORALLY. PT REPORTS 2/10 PAIN IN ABDOMEN THAT IS WELL CONTROLLED. PT DENEIS ADDITIONAL REQUESTS OR COMPLAINTS. CALL LIGHT WITHIN REACH. BED RAILS UP.
--- NOTE | 2022-03-03 18:48 | NUR ---
PT CALL LIGHT ON. PT STATES "I THINK I'M FEELING HOT BECAUSE I'M GETTING NAUSEOUS." PT AGREES TO ZOFRAN. SEE MAR FOR MEDICATION GIVEN. ALCOHOL SWABS PROVIDED AND COOL CLOTH PROVIDED. PT DENIES ADDITIONAL REQUESTS OR COMPLAINTS. PT REPORTS PAIN IS WELL CONTROLED. NO ADDITONAL NEEDS AT THIS TIME. CALL LIGHT WITHIN REACH. BED RAILS UP.
--- NOTE | 2022-03-03 21:08 | NUR ---
RECEIVED REPORT FROM DAY SHIFT NURSE , PT LAYING IN BED REPORTS NAUSEA . ZOFRAN, GIVEN PRIOR TO SHIFT CHANGE. CALL TO MD FOR ADDITIOAL MEDS AND CLARIFICATION ON IV ABX. PRN PAIN MEDS GIVEN .VSS CALL LIGHT WITHIN REACH REMAINS AT BEDSIDE. WILL CONTINEU TO MONITOR.
--- NOTE | 2022-03-03 21:21 | OR ---
[facility] [address], [place] [address] Signed DATE OF OPERATION: 03/03/2022 SURGEON: Juancho Rhodes MD PREOPERATIVE DIAGNOSES: 1. Perforated sigmoid diverticulitis with abscess. 2. Acute malnutrition. POSTOPERATIVE DIAGNOSES: 1. Perforated sigmoid diverticulitis with abscess. 2. Acute malnutrition. PROCEDURES: 1. Partial colectomy with end-to-end colonic anastomosis, hand-sewn in two layers (prolonged and difficult 4 hours and 20 minutes). 2. Placement of left pelvic drain. 3. Physician directed ultrasound. 4. Placement of right IJ triple lumen catheter. ESTIMATED BLOOD LOSS: 250 mL. FINDINGS: Estela indeed had an abscess between the sigmoid colon and the ovary and left fallopian tube. Amazingly a little bit omentum was inflamed, but the rest was completely uninvolved as was the entire small bowel. The distal sigmoid and proximal rectum were completely uninvolved and there was very little involvement of the proximal sigmoid colon as well. Consequently, we were able to drain the abscess, resected the bowel, bringing it back together end-to-end hand-sewn in two layers. However, there was quite a bit of inflammatory changes obviously in that mesentery and we had to go very slowly and use several 0-Vicryl stitches to help control the bleeding. There was also little bleeding off the fimbria itself, which was controlled was 0-Vicryl suture. In addition, her adipose tissue complicated the procedure as well. We did have an extra nurse scrub in order to help. Even then, it took well over an hour longer than usual. In this way, the procedure was prolonged and difficult. INDICATIONS: Estela is a 61-year-old female with a body mass index of 39.5. She came on February 27 with diverticulitis with a small pocket of air alongside her sigmoid colon, not much in the way of any other findings. She was admitted to Dr. Robins. She was treated Electronically Signed By: JUANCHO RHODES MD 03/03/222120 PATIENT NAME: ESTELA SANCHEZ OPERATIVE REPORT DATE OF : 58 REPORT #: [id number] PHYSICIAN: JUANCHO RHODES MD PCP: GIOVANI SINGH MD REPORT IS CONFIDENTIAL AND NOT TO BE RELEASED WITHOUT AUTHORIZATION [facility] [address] [place], [place] [address] Signed conservatively and seems to be doing quite well. I had taken off this cross-cover on 03/01/2022. Her temperature curve trended down. Her white count had trended down. She was passing some flatus and even passing some bowel movements. She was on a low residue diet. We came the next morning and she seems to be doing well in the morning. We will plan on discharging her to home with Cipro and Flagyl. However, by that afternoon she felt like the pain was getting worse, and so we checked repeat CT scan and sure enough she had developed an abscess around that area with some free air up around her diaphragm. Ravin came in to see her in along with her . We reviewed all the findings in detail. They are very familiar and very educated on diverticulitis. They have had several friends go through this as well. We offered to take her to surgery around 0930 to 10 o'clock at night. She wanted to wait and do it first thing in the morning. She was not overtly sick and we thought she would try Beau for okay for a few more hours. We kept her on the Jami. We switched her back to cefepime and Flagyl. This morning, she really was doing quite well. She was not systemically ill or toxic. Her white count was starting to trend back up. She did have a couple of fever spikes around 100.3. She was not tachycardic. She was tender in the left lower quadrant. She did not have diffuse peritonitis. I had reviewed with them the idea of perforated diverticulitis. We had discussed resection of the sigmoid colon with primary anastomosis versus a colostomy. Of course, the colostomy would be temporary and have to be reversed in a few months. We also reviewed the need for a central venous catheter giving her need for ongoing care and monitoring in the ICU. They understand there is risk to the surgery including, but not limited to bleeding, infection, scarring, change in contour of the skin, damage to bowel, damage to the ureter, anastomotic leak, incisional hernias, and other unforeseen comorbidities. We also reviewed the risks, placement of a central venous catheter including, but not limited to bleeding, infection, scarring, change in contour of the skin as well as pneumothorax requiring chest tube placement and catheter embolization requiring retrieval. They had expressed understanding and wished to proceed. DESCRIPTION OF PROCEDURE: I had met with Estela and her here in the morning once again. After that, we took Estela down the operating room, placed her in the supine position under general endotracheal tube anesthesia. She was already on preoperative antibiotics along with subcutaneous Lovenox. SCDs were utilized. She was prepped and draped in the usual sterile fashion. We placed a Cortez catheter with return of clear yellow urine without difficulty. She has had a previous infraumbilical midline incision for the partial hysterectomy. We simply extended that up above the umbilicus. We carried this into the abdomen with the help of the cautery. There was no rupture of free air. There is no odor. As we looked, the omentum was completely uninvolved inflammatory changes, except right over the abscess area. It was very easy digital fracture technique to separate the omentum from the abscess as well as the sigmoid colon. The small bowel had been completely covered by the omentum and was completely uninvolved. The distal portion of Electronically Signed By: JUANCHO RHODES MD 03/03/22 2121 PATIENT NAME: ESTELA SANCHEZ OPERATIVE REPORT DATE OF : 58 REPORT #: [id number] PHYSICIAN: JUANCHO RHODES MD PCP: GIOVANI SINGH MD REPORT IS CONFIDENTIAL AND NOT TO BE RELEASED WITHOUT AUTHORIZATION [facility] [address] [place], [place] [address] Signed the sigmoid colon and the upper rectum were completely uninvolved. The more proximal portion of the sigmoid colon was also uninvolved. We suctioned out the abscess cavity. There was a little bit of adhesions of the fallopian tube in the fimbriae to the colonic mesentery. It was taken down with cautery. There was just a little bleeding from the fimbriae, we just oversewed that with 0-Vicryl suture. We divided the bowel both proximally and distally with the help to TA60 stapler. We oversewed both ends of the specimen with a running locked 0-Vicryl suture. We very slowly and carefully took down the mesentery that same of the bowel between Pean clamps and 0-Vicryl ties. We also used several 0-Vicryl stitches to help control the bleeding. We marked the specimen appropriately and it was passed off the field. We then repositioned our Bookwalter retractor and we freed up the white line of Toldt from the distal side of the splenic flexure all the way down the left side into the sigmoid colon, that gave us enough room to bring the bowel back together end-to-end without any tension whatsoever. We performed a standard anastomosis in two layers with Vicryl and silk sutures. This gave a nice palpably patent anastomosis. We took some pericolonic fat and brought it over the anterior portion at that anastomosis and held in place with a few interrupted silk sutures. We then copiously irrigated the pelvis and suctioned that out until clear. A #10 flat Riley drain was placed in past the left fallopian tube and had abscessed area on the left side of the abdomen. It was held in place with interrupted 2-0 nylon suture. We closed the mesenteric rent with a running 2-0 Vicryl suture on the sigmoid mesocolon. We irrigated this area and suctioned this out once again. The bowel was then returned to its position and the omentum was placed over that. We checked the position of the NG tube in the stomach with our right hand. After this we carefully and slowly closed her midline incision with interrupted [id number] #1 PDS sutures. We had to hold her abdomen up together due to the weight gain as we tied all those interrupted sutures down. We then irrigated the wound and suctioned that out until clear. We brought the dermis back together with interrupted 3-0 subcuticular Monocryl sutures. The skin edges were then reapproximated with stan. Dry gauze and stan were then applied. After this the entire field was taken down and we prepped and draped the right neck and chest wall sterilely. Before starting the entire case, our nurse assembly line worker then placed bilateral tap blocks with ultrasound guidance. We then used ultrasound to locate the right carotid artery and the right internal jugular vein, it was very easy to see. We watched this as our needle passed down into the internal jugular vein. We had return of nonpulsatile dark venous blood. We then passed a wire without difficulty. The wire was confirmed in position of the internal jugular vein with the help of the ultrasound unit. We then dilated the tract without difficulty and the dilator curved in the appropriate direction. The catheter was then placed up to 16 cm and held in place with interrupted silk sutures. All three ports were able to draw and flush quite nicely. Dry plastic occlusive dressing was then applied per nursing staff. Estela was then awakened from anesthesia, extubated in the OR, taken to the recovery room in stable Electronically Signed By: JUANCHO RHODES MD 03/03/222120 PATIENT NAME: ESTELA SANCHEZ OPERATIVE REPORT DATE OF : 58 REPORT #: [id number] PHYSICIAN: JUANCHO RHODES MD PCP: GIOVANI SINGH MD REPORT IS CONFIDENTIAL AND NOT TO BE RELEASED WITHOUT AUTHORIZATION [address] [address] Signed condition. Juancho Rhodes MD ALB/MODL /[id number] cc: Renny Robins MD Patient Chart MD Juancho Campoverde MD Copies: RENNY ROBINS MD, RUSSELL BARR MD BOWER, ANDREW L MD ~ Electronically Signed By: JUANCHO RHODES MD 03/03/222120 PATIENT NAME: ESTELA SANCHEZ OPERATIVE REPORT DATE OF : 58 REPORT #: [id number] PHYSICIAN: JUANCHO RHODES MD PCP: GIOVANI SINGH MD REPORT IS CONFIDENTIAL AND NOT TO BE RELEASED WITHOUT AUTHORIZATION
--- NOTE | 2022-03-03 23:07 | NUR ---
PT CALLING ASKING ABOUT PRN TORDOL. TORDOL GIVEN AT THIS TIME, REPORTS 6/10 PAIN . TURNED ON INTERMITTENT SUCTION. VSS RESP EVEN AND UNLABORED. CALL LIGHT WITHIN REACH WILL CONTINUE TO MONITOR
--- NOTE | 2022-03-03 23:42 | NUR ---
PT REPORTS MILD NAUSEA, PT WOULD LIKE TO TRY AND SEATTLE HERSELF DOWN TO SEE IF NAUSEA WILL SUBSIDE. VSS RESP EVEN AND UNLABORED. WILL CONTINUE TO MONITOR
--- NOTE | 2022-03-04 02:11 | NUR ---
PT RESTING IN BED IN NO ACUTE DISTRESS. RESP EVEN AND UNLABORED. VSS CALL LIGHT WITHIN REACH WILL CONTINUE TO MONITOR
--- NOTE | 2022-03-04 05:34 | NUR ---
PT AWAKE THIS AM. PT ASKING FOR TORDOL REPORTS IT HELPS WITH THE PAIN . WILL MEDICATE IN 30 MINUTES DT TIMING. PT REPORTS SORE THROAT. INFORMED PT THAT DURING SURGERY SHE MUST HAVE BEEN INTUBATED AND THE NG TUBE DOESNT HELP EITHER. ICE CHIPS AT BEDSIDE. ABOUT 150 CC FROM NG, 150 FROM DRAGAN DRAIN. VSS RESP EVEN AND UNLABORED. WILL MEDICATE FOR PAIN ONCE ABLE TO . CALL LIGHT WITHIN REACH WILL CONTINUE TO MONITOR.
--- NOTE | 2022-03-04 07:35 | NUR ---
REPORT RECEIVED FROM BERT SANTIAGO. PT RESTING IN BED WITH EYES CLOSED, RESPIRATIONS EVEN AND UNLABORED. RR = 15. OXGYEN SATURATION 92% ON ROOM AIR. REPORT STATES PT HAS BEEN COMPLAINING OF SOAR THROAT. CEPAXOLE LOSANGES ORDERED. CENTAL LINE SALINE LOCKED AT THIS TIME WITH IV FLUIDS INFUSING THROUGH LEFT FORARM IV SITE. HEP LOCK FOR CENTRAL LINE ORDERED PER PROTOCOL. NO ADDITIONAL NEEDS AT THIS TIME. CALL LIGHT WITHIN REACH. BED RAILS UP.
--- NOTE | 2022-03-04 08:45 | NUR ---
MORNING ASSESSMENT AND MEDICATION DUE. PT AWAKE, ALERT AND OREINTED. PT REPORTS 3/10 OCCATIONAL CRAMPING PAIN IN ABDOMEN, PT DENIES NEED FOR ADDITONAL PAIN MEDICATION. 1 PERSON ASSIST FOR LINE AND TUBE MANAMGEMENT UP TO CHAIR. PT REPORTS PAIN INCREASES WITH ACTIVITY UP TO 8/10, RESOVING WITH REST. CENTRAL LINE ASSESSED, WNL, BRISK BLOOD RETURN NOTED IN ALL LUMENS WHITE LUMEN INFUSING METRONIDAZOLE, OTHER LUMENS FLUSHED AND HEPARIN LOCKED PER PROTOCOL. ALCOHOL CAPS APPLIED. LEFT ARM IV SITE WNL. IV FLUIDS AND CEFEPIME INFUSING THROUGH THIS IV SITE. LUNG SOUNDS CLEAR. I.S. USE DEMONSRATED, PT REACHES [id number] X5. PT TOLERATING ROOM AIR WITH OXGYEN SATURATIONS ABOVE 92%. HEART TONES REGULAR, NORMAL SINUS RYTHEM NOTED ON MONITOR WITH HEART RATE INTEH 70'S. +1 PITTTIN EDEMA NOTED IN BLE. GENERLAZED SWELLING NOTED IN HANDS. MODERATE DISTENTION NOTED IN ABDOMEN. ABDOMEN SOFT BUT TENDER. ACTIVE BOWEL TONES HEARD IN UPPER QUDRANTS, HYPOACTIVE IN LOWER QUADRANTS. NG TUBE HOOKED TO LOW INTERMITTAN SUCTION WITH LIGHT SMALL AMOUNTS OF LIGHT BROWN FLUID NOTED IN CANISTER. PT USING ICE CHIPS FOR COMFORT. CEPACOL LOSANGE PROVIDED. LAUREN CATEHTER DRINAING CLEAR YELLOW URINE. MID LINE INCISION DRESSING INTACT OLD DRAINAGE/SHADOWING NOTED ON LOWER ~20% OF DRESSING. NO NEW DRAINAGE NOTED. DRAGAN DRESSING WNL, SMALL AMOUNT OF OLD RED SHADOWING NOTED. DRAGAN DRAIN DRAINING SMALL AMOUNTS SEROUS ANGUINOUS DRAINGE. PT REMAINS UP TO CHAIR, USING ICE CHIPS FOR COMFORT. PT DENIES ADDITIONAL REQUESTS OR COMPLAINTS. CALL LIGHT WITHIN REACH. BED RAILS UP.
--- NOTE | 2022-03-04 09:33 | NUR ---
DR. RHODES TO BEDSIDE TO ROUND ON PT. PLAN OF CARE REVIEWED WITH PT AND . PT AND VERBALIZE UNDERSTANDING OF PLAN OF CARE AND STATE THEIR QUESTIONS HAVE BEEN ANSWERED. NO ADDITIONAL NEEDS AT THIS TIME. CALL LIGHT WIHTIN REACH. PT REMAINS UP TO CHAIR.
--- NOTE | 2022-03-04 10:40 | NUR ---
PT UPDATED ON PLAN OF CARE AND TRANSFER TO MED/SURG. NG TUBE REMOVED PER PROTOCOL. PT TOELRATED WELL. PT DENIES LIDYA REPORTS 3/10 PAIN IN ABDOMEN THAT IS WELL CONTROLED AT THIS TIME. PT REPORTS SHE WOULD LIKE PAIN MEDICATION PRIOR TO TRANSFER. NO ADDITIONAL NEEDS AT THIS TIME. CALL LIGHT WIHTIN REACH. AT BEDSIDE.
--- NOTE | 2022-03-04 11:00 | NUR ---
PATIENT TRANSFERED FROM CCU TO RM#115 ON MED/SURG. PATIENT ARRIVED VIA WHEELCHAIR AND THEN 1PA TO THE BEDSIDE ARMCHAIR. PATIENT'S IN THE ROOM. PATIENT'S PAIN IS CONTRILLED AT THIS TIME SHE JUST HAD 1MG IV DILAUDID FOR TRANSPORT FROM CCU TO MED/SURG. PATIENT'S VS ARE STABLE. MIDDLE SCHOOL PROFESSIONAL'S HELPING PATIENT GET SITUATED IN THE ROOM. CALL LIGHT IS IN REACH.
--- NOTE | 2022-03-04 11:35 | NUR ---
REPORT CALLED TO BERT BRODERICK ON MED/SURG WHO IS ASSUMING CARE OF PT. PT TRANSFERED TO MED/SURG FLOOR BY CHAIR. ALL BELONGINGS WITH PT.
--- NOTE | 2022-03-04 14:30 | NUR ---
PATIENT CALLED HAVING 4/10 ABD PAIN AND CRAMPING AND ASKED IF SHE COULD GET IV TYLENOL, WHICH WE HAD DISCUSSED EARLIER. THIS RN HUNG THE TYLENOL AND PATIENT'S IV ANTIBIOTIC. PATIENT'S AFTERNOON ASSESSMENT COMPLETE. CALL LIGHT IN REACH AND PATIENT DENIED ANY OTHER CARE NEEDS AT THIS TIME.
--- NOTE | 2022-03-04 18:32 | NUR ---
PATIENT GOT UP TO CHAIR WITH ASSISTANCE FROM AUTOMATIC TIRE TESTER AND AUTOMATIC TIRE TESTER NABEEL. PATIENT SHOWED PAIN AND DISCOMFORT IN LEFT LEG BUT WAS ABLE TO PIVOT TO CHAIR WITH LIMITED ASSISTANCE. CALL LIGHT LEFT WITHIN REACH.
--- NOTE | 2022-03-04 19:25 | NUR ---
SHIFT REPORT RECEIVED FROM DAYSNEFT BERT BRODERICK AT BEDSIDE. pt AWAKE AND RESTING IN CHAIR. IV SITE TO LEFT HAND WNL, FLUIDS INFUSING DIRECTED. CENTRAL LINE TO RIGHT SIDE OF NECK WNL, HEP LOCKED PER SHIFT REPORT. LAUREN PATENT, NO NEEDS OR CONCERNS VERBALIZED. CALL LIGHT IN REACH.
--- NOTE | 2022-03-04 20:54 | NUR ---
ASSESSMENT COMPLETE, SCHEDULED MEDS GIVEN (SEE EMAR). pt REPORTS TOLERABLE 3-5/10 PAIN, OKAY WITH WAITING FOR AVAILABLE TYLENOL. IV SITE WNL, FLUIDS INFUSING DIRECTED. CENTRAL LINE DRESSING ALSO WNL, BRISK BLOOD RETURN NOTED TO ALL 3 LUMENS AND FLUSHED VIA SALINE AND HEP LOCKED PER POLICY, ALCOHOL CAPS ALL IN PLACE. pt DENEIS NAUSEA, BOWEL TONES ACTIVE. MIDLINE INCISION WNL, ELEANOR NOTED. DRAAGN DRAIN PATENT, OUTPUT SEROSANGUINEOUS IN COLOR. pt UP FROM CHIAR TO BED, SBA WITH FWW. A LITTLE SLOW MOVING, BUT STEADY ON FEET. SCD'S IN PLACE AND CALL LIGHT IN REACH. NO ADDITIONAL NEEDS, CALL LIGHT IN REACH.
--- NOTE | 2022-03-04 22:01 | NUR ---
PT CALLED, PILLOWS ON FLOOR. CHANGED PILLOW CASE, PERSONAL PILLOW GIVEN. VISITED WITH PT. NO OTHER NEEDS AT THIS TIME.
--- NOTE | 2022-03-04 23:03 | NUR ---
pt REPORTS 4/10 PAIN, PRN TYLENOL GIVEN, SEE EAMR. NEW BAG IV FLUIDS ALSO HUNG , SEE EMAR. IV ABX PLACED ON STANDBY D/T NO COMPATIBILITY WITH IV TYLENOL. WILL RESUME FOLLOWING PAIN MEDICATION. IV SITE WNL CALL LIGHT IN REACH.
--- NOTE | 2022-03-04 23:26 | NUR ---
iv tylenol complete, iv fluids and iv abx infusion resumed. iv site wnl. no additional needs. call light in reach.
--- NOTE | 2022-03-05 02:30 | NUR ---
IV SITE ALARMING, ISSUE RESOLVED. NO ADDITIONAL NEEDS, CALL LIGHT IN REACH.
--- NOTE | 2022-03-05 02:45 | NUR ---
SCHEDULED IV ABX INFUSING DIRECTED, IV SITE WNL. NO ADDITIONAL NEEDS, CALL LIGHT IN REACH. SCD'S ON.
--- NOTE | 2022-03-05 05:17 | NUR ---
V/S AND I&OS COMPLETED. LAUREN CARE DONE. GARBAGES PICKED UP. ICE PACK MADE.
--- NOTE | 2022-03-05 05:20 | NUR ---
ASSESSMENT COMPLETE, NO ACUTE CHANGES. pt DENIES PASSING GAS. BOWEL TONES ACTIVE IN RIGHT QUADRANTS, HYPOACTIVE IN LEFT QUADRANTS. FRESH ICE PACK IN PLACE, pt REPORTS TOLERABLE 4/10 PAIN. NO FURTHER NEEDS, CALL LIGHT IN REACH. SCD'S ON.
--- NOTE | 2022-03-05 06:12 | NUR ---
IV FLUIDS TITRATED DOWN TO 75MLS/HR PER MD ORDERS. LAUREN CATHETER REMOVED AT THIS TIEM PER MD ORDERS. CALL LIGHT IN REACH.
--- NOTE | 2022-03-05 07:50 | NUR ---
PATIENT CALLED HAVING 4/10 ABD PAIN. THIS RN IN TO SEE PATIENT AND PATIENT DENIES NAUSEA. THIS RN WAS INFORMED THAT PATIENT WANTED TO TAKE SOME MOTRIN. 800mg PO MOTRIN GIVEN. PATIENT GETTING UP TO THE RESTROOM. INFORMED PATIENT IF SHE HAD AN INCREASE IN PAIN WITH AMBULATING TO THE BATHROOM AND BACK AND FELT SHE NEEDED MORE PAIN MEDICATION I COULD BRING DOWN SOME DILAUDID DOWN. PATIENT VERBALIZED UNDERSTANDING. TIA,ELECTRONIC PUBLISHING SPECIALIST TAKING PATIENT TO THE RESTROOM.
--- NOTE | 2022-03-05 09:45 | NUR ---
PATIENT UP TO BATHROOM WITH SBA AND FWW. PATIENT SITTING UP IN CHAIR AT THIS TIME.
--- NOTE | 2022-03-05 10:13 | NUR ---
PATIENT JUST BACK FROM AMBULATING TO THE RESTROOM WITH BERT HURD. PATIENT HAS C/O 6/10 ABD PAIN WHEN THIS RN CAME IN THE ROOM. 1MG SIVP DILAUDID GIVEN. JAZIEL ALEMAN RN IN VISITING WITH PATIENT. PATIENT HAD NO OTHER CARE NEEDS AT THIS TIME. SENDING SOD FARMER'S DOWN IN TO AMBULATE PATIENT IN THE HALLWAY. CALL LIGHT IN REACH.
--- NOTE | 2022-03-05 10:47 | NUR ---
THIS RN IN TO SEE PATIENT AND HER PAIN IS GONE AT THIS TIME. PATIENT IS UP WITH RUBI CHAMPION 1P YULISA ASSIST AND FWW AND IS HEADED OUT INTO THE HALLWAY TO TAKE A WALK. PATIENT HAS NO CARE NEEDS FROM THIS RN AT THIS TIME.
--- NOTE | 2022-03-05 10:57 | NUR ---
THIS CUSTODIAL OFFICER IN TO AMBUALTE PATIENT. PATIENT AMBUALTED FROM ROOM TO CCU DOORS AND BACK TO ROOM, SBA FWW. PATIENT TOLERATED IT VERY WELL AND ENCOURAGED TO WALK A LITTLE FARTHER NEXT TIME. PATIENT NOW IN CHAIR. CALL LIGHT IN REACH. NO FURTHER NEEDS AT THIS TIME.
--- NOTE | 2022-03-05 11:30 | NUR ---
Spoke with pt and she states she is starting to feel better. pt is up in the chair at the bed side. Denies needs.
--- NOTE | 2022-03-05 11:34 | NUR ---
PT CALLED FOR ASSISTANCE BACK TO BED. PT IS ABLE TO TRANSFER W/STBY ASSIST (IV POLE). CHANGED GOWN BECAUSE SHE STATED THE BIGGER ONE WAS "TOO HEAVY". PT WANTED THE BLINDS DRAWN AND WANTING TO SLEEP. TABLES AND CALL LIGHT ARE IN REACH. PT RESTING COMFORTABLY. NO OTHER CONCERNS AT THIS TIME.
--- NOTE | 2022-03-05 12:26 | NUR ---
THIS RN CHECKED IN ON PATIENT AND HER PAIN REMAINS GONE. PATIENT HAS A VISITOR THAT JUST ARRIVED. PATIENT HAS NO OTHER CARE NEEDS AT THIS TIME. CALL LIGHT IS IN REACH.
--- NOTE | 2022-03-05 14:08 | NUR ---
PT OUT OF RM AMBULATING IN HALLWAY WITH LAYOUT MECHANIC. WILL CHECK BACK
--- NOTE | 2022-03-05 15:07 | NUR ---
PATIENT CALLED HAVING 2/10 ABD PAIN AND WANTED TO TAKE SOME TYLENOL. 1GM PO TYLENOL GIVEN. PATIENT DENIES NAUSEA AND ANY OTHER CARE NEEDS AT THIS TIME. AFTERNOON ASSMENT COMPLETE. CALL LIGHT IN REACH.
--- NOTE | 2022-03-05 17:59 | NUR ---
PATIENT UP IN THE BEDSIDE ARMCHAIR AND IS VISITING WITH HER . PATIENT DENIES ANY CARE NEEDS AT THIS TIME. CALL LIGHT IN REACH.
--- NOTE | 2022-03-05 18:40 | NUR ---
VITALS AND I/O DONE. PATIENT GIVEN IBUPROFEN FOR 1/10 PAIN.
--- NOTE | 2022-03-05 19:05 | NUR ---
bedside report from Ed NOEL, pt with call light and family in room, denies needs.
--- NOTE | 2022-03-05 20:25 | NUR ---
CALL LIGHT ANSWERED. 1 SBA WITH WALKER TO THE BATHROOM. PATIENT THOUGHT OF HAVING BM. NO BM THIS TIME. KAYLA CARE ASSISTED WITH SMEAR. PATIENT IS BACK IN BED. FRIEND CAME IN TO THE ROOM FOR VISIT.
--- NOTE | 2022-03-05 22:45 | NUR ---
SBA TO THE BATHROOM WITH WALKER. NO BM ONLY VOIDED. PATIENT IS BACK IN BED. SCD'S OFF PATIENT REQUESTED. PRIMARY RN NOTIFIED.
--- NOTE | 2022-03-06 00:15 | NUR ---
PT CALLED, ASSISTED TO BSC TO VOID. BACK TO BED WITH ASSIST OF EMAIL CAMPAIGN SPECIALIST. NO OTHER NEEDS AT THIS TIME
--- NOTE | 2022-03-06 01:47 | NUR ---
attended to iv pump alarming, increase volume, pt denies needs.
--- NOTE | 2022-03-06 08:36 | NUR ---
administered morning meds per order. pt sitting up in chair. rates pain 2\10. states she slept well.
--- NOTE | 2022-03-06 09:39 | NUR ---
PATIENT IN CHAIR, IN ROOM. VITALS AND I&O'S CHARTED. CALL LIGHT IN REACH. NO FURTHER NEEDS AT THIS TIME.
--- NOTE | 2022-03-06 11:12 | NUR ---
PT UP TO BATHROOM W/STBY FWW (IV POLE). VOID THEN WANTED TO GO AMBULATE IN THE UNIT. PT AMBULATED APPX 15FT AROUND UNIT. PT WAS STEADY ON HER FEET, NO COMPLAINTS OF PAIN. ABLE TO AMBULATE W/O HOLDING ON TO WALKER FOR A FEW FEET. BACK TO ROOM AND SHE WANTED TO LAY DOWN AND REST. PT REQUESTED PAIN MEDS AFTER LAYING DOWN DUE TO PAIN FROM AFTER WALK. REPORTED TO RN. NO OTHER REQUESTS AT THIS TIME. CALL LIGHT IN REACH. AT BEDSIDE.
--- NOTE | 2022-03-06 12:00 | NUR ---
PT RESTING IN BED, IN RM.PT PLEASANT, EXCITED TO FINALLY GET A CLEAR LIQUID DIET! PT EXPRESSED THANKFULNESS FOR CARE RECEIVED AT [facility]. HAD PRAYER WITH BOTH. WILL FOLLOW NEEDED
--- NOTE | 2022-03-06 12:09 | NUR ---
THIS RN IN FOR TO ASK PATIENT IF SHE HAS ANY DC CONCERNS. PATIENT SAYS SHE WOULD LIKE TO GET A WALKER TO JUST HAVE AT HOME AND A PORTABLE DEVICE THAT CAN BE USED AT THE TOILET FOR HANDRAILS TO GET UP AND DOWN. THIS RN AND KRISTINE FROM ARE UNAWARE OF THIS PIECE OF EQUIPMENT. PATIENT HAS NOT NEEDED PT WHILE IN THE HOSPITAL THUS FAR, SO PATIENT GIVEN THE ADDRESS AND PHONE # FOR THE [facility] LOAN CLOSET. PATIENT IS GOING TO GO AND CHECK THE PLACE OUT WITH HER AT [place], TO LOOK FOR ANY MEDICAL EQUIPMENT THEY DECIDE THEY MIGHT WANT. PATIENT HAS NO OTHER CONCERNS AT THIS TIME AND HER DOES NOT EITHER.
--- NOTE | 2022-03-06 20:13 | NUR ---
pt amb in downing with fww, po tylenol given for pain, charlotte emptied left side with serous drainage, bm and void 300 ml - pt doing well.
--- NOTE | 2022-03-07 03:43 | NUR ---
rounded on pt, denies needs, iv abx fusing on pump.
--- NOTE | 2022-03-07 05:07 | NUR ---
pt feeling pretty good pain choudhury - request to have motrin 2/10 pain.
--- NOTE | 2022-03-07 07:20 | NUR ---
Bedside report received from MAIKEL RN. Pt was still sleeping when nurses entered the room. RA. Abx and IVF infusing.
[2022-03-07] MEDS ORDERED: AMOX TR-K CLV1 EAC1 PO (09:11)
[2022-03-07] MEDS ORDERED: METRONIDAZOLE250 MG PO (09:12)
[2022-03-07] MEDS ORDERED: ADVIL200 MG PO (09:13)
[2022-03-07] MEDS ORDERED: ACETAMINOPHEN325 M1 PO (09:13)
--- NOTE | 2022-03-07 11:29 | PATH ---
[facility] [address] [place], [place] [address] Signed SPECIMEN(S): A SIGMOID COLON SPECIMEN SOURCE: A. SIGMOID COLON CLINICAL HISTORY: Diverticulitis with perforation. FINAL PATHOLOGIC DIAGNOSIS: Colon, sigmoid, sigmoidectomy: - Diverticulosis with evidence of prior perforation, see Comment. - Acute serositis. - Viable surgical margins. COMMENT: A definitive perforation site was not identified grossly, however plant cell fragments are seen embedded within the serosal exudate, which is evidence of perforation. NAL:cml:C2NR MICROSCOPIC EXAMINATION: Histologic sections of all submitted blocks are examined by light microscopy. These findings, together with the gross examination, support the pathologic diagnosis. GROSS DESCRIPTION: The specimen, labeled "Aga Sanchez," is received in formalin and consists of a previously opened segment of colon (15.2 cm in length by 1.1-4.2 cm luminal circumference) with a large amount of attached hemorrhagic mesentery. The serosa is bain-pink, smooth and glistening with a 3.1 cm length of sutures toward one margin. The mucosa is bain-brown and edematous with multiple diverticula. A definitive perforation site is not identified upon sectioning. The margins are submitted en face in A1-A2 and two pharmaceutical representative sections of diverticula are submitted in A3-A4. KD (under the direct supervision of a pathologist) The Gross Description was prepared using a voice recognition system. The report was reviewed for accuracy; however, sound-alike word errors, addition and/or deletions may occur. If there is any question about this report, please contact Client Services. PATIENT NAME: ESTELA SANCHEZ PATHOLOGY DATE OF : 58 REPORT #: [id number] PHYSICIAN: IDALIA GRANADOS PCP: GIOVANI SINGH MD REPORT IS CONFIDENTIAL AND NOT TO BE RELEASED WITHOUT AUTHORIZATION [facility] [address] [address] Signed PERFORMING LABORATORY: The technical component [place] [address] (CLIA# [id number]). Professional interpretation was performed by [facility], [address] [address] (CLIA# [id number]). Diagnostician: Jesusita Garcia MD Pathologist Electronically Signed 03/07/2022 Copies: ~ PATIENT NAME: ESTELA SANCHEZ PATHOLOGY DATE OF : 58 REPORT #: [id number] PHYSICIAN: IDALIA GRANADOS PCP: GIOVANI SINGH MD REPORT IS CONFIDENTIAL AND NOT TO BE RELEASED WITHOUT AUTHORIZATION
--- NOTE | 2022-03-07 12:14 | NUR ---
Education provided regarding DRAGAN drain. Per surgeon's instructions Pt is to record daily output. Pt was also advised to look for any changes in the color of the drainage and appropriately report to the doctor any abnormalities.
--- NOTE | 2022-03-07 13:18 | NUR ---
REMOVED IJ PER PROTOCOL. PT TOLERATED WELL. NO BLEEDING NOTED. TIP INTACT. OCCLUSIVE DRESSING APPLIED. INSTRUCTED TO LAY FOR 30 MINUTES AND MAY BE REMOVED DRESSING AFTER 24 HOURS.
--- NOTE | 2022-03-07 14:26 | NUR ---
PT ALERT, ORIENTED AND SITTING UP IN CHAIR. PT HOPES TO DC TODAY. PT APPEARS TO BE FEELING MUCH BETTER AND SHE ACKNOWLEDGES. GAVE BLESSING, PT THANKED ME FOR VISITING. WILL FOLLOW
--- NOTE | 2022-03-07 14:28 | NUR ---
Pt was able to tolerate tomato soup. No abdominal dyscomfort or diarrhea. Pt was educated on making appropriate dietary choices after going home.
--- NOTE | 2022-03-07 15:12 | NUR ---
Discharge instructions provided. Pt has 2 follow-up appts with Dr Waggoner and Dr Strange. Pt is currently waiting for her who's finishing up his appt with Dr Walker.
--- NOTE | 2022-03-08 06:49 | DS ---
[facility] [address] [place], [place] [address] Signed ADMISSION DATE: 02/27/2022 DISCHARGE DATE: 03/07/2022 FINAL DIAGNOSIS: Perforated sigmoid diverticulitis with abscess. PROCEDURES: 1. Sigmoid resection with primary end-to-end anastomosis, hand-sewn in two layers. 2. Placement of left pelvic drain. 3. Placement of right IJ triple lumen catheter. HISTORY OF PRESENT ILLNESS: Estela is a 61-year-old obese female, who has been admitted to our emergency room to Dr. Walker for sigmoid diverticulitis. Initially, she had just a small pocket of air alongside her sigmoid colon. She was treated conservatively with antibiotics. She had been switched to oral antibiotics and her diet had been advanced. I had taken over in Dr. Walker absence. Unfortunately, Estela's pain increased and she started noticing irritation under her diaphragm. We repeated the CT scan and sure enough she developed an abscess between the sigmoid colon and the pelvic sidewall. She had free air up underneath her diaphragm. Consequently, I took her to surgery on 03/03/2022 for a prolonged and difficult sigmoid resection. We brought the colon back together end-to-end, hand-sewn in two layers. We placed a pelvic drain right through the abscess cavity. That has been thin serosanguineous at this point. We used a right IJ triple lumen catheter as well anticipating ongoing treatment and care. She has done well both intraop and postop. Her white count is hanging around 11-12 on her IV cefepime and Flagyl. She has been tolerating her clear liquid diet. She has had a couple of days now with lots of flatus and multiple bowel movements. Her abdominal exam is improved. It is obese, but soft and flat, nontender. Incision is healing well without any local signs or symptoms of infection. She has avoided narcotics and is using Tylenol for pain. At this point, we are going to be discharging her to home with her . DISCHARGE PLANS AND MEDICATIONS: Estela will be discharged to home with a prescription for Augmentin and Flagyl to be used over the next seven days. She can use Tylenol as needed for pain. She can resume her chronic medications which is down to just gabapentin. She will follow a low residue diet for 6 to 8 weeks and then advance to regular. We will leave the stan in place. I will see her back in the office in a week or so for followup. We will leave the drain in place at this point, remove that in the office as well. I have reviewed this with Estela in detail, she understands. She can continue her activities of daily living including walking up and down stairs and showering bathing as usual. She should not do any heavy pushing, pulling, or lifting over about 20 pounds. She has expressed Electronically Signed By: JUANCHO RHODES MD 03/08/22 0649 PATIENT NAME: ESTELA SANCHEZ DISCHARGE SUMMARY DATE OF : 58 REPORT #: [id number] PHYSICIAN: JUANCHO RHODES MD PCP: GIOVANI STRANGE MD REPORT IS CONFIDENTIAL AND NOT TO BE RELEASED WITHOUT AUTHORIZATION [facility] [address] [place], [place] [address] Signed understanding and agrees with above plan. Juancho Rhodes MD ALB/MODL /[id number] cc: MD Luis Daniel Navarrete, MD Giovani Strange MD Copies: JUANCHO RHODES MD,GIOVANI BLEVINS MD, MD ~ Electronically Signed By: JUANCHO RHODES MD 03/08/22 0649 PATIENT NAME: ESTELA SANCHEZ DISCHARGE SUMMARY DATE OF : 58 REPORT #: [id number] PHYSICIAN: JUANCHO RHODES MD PCP: GIOVANI STRANGE MD REPORT IS CONFIDENTIAL AND NOT TO BE RELEASED WITHOUT AUTHORIZATION
== END 2022-03-07 16:05 | disposition home or self-care (01) | DRG 329 ==
LOC: ED 06:32 → MS 09:31 → CCU 03-03 13:00 → MS 03-04 11:55
PROVIDERS: Colon & Rectal Surgery; ADMIT Surgery; ATTEND Surgery
PROC: 0W9J30Z Drainage of Pelvic Cavity with Drainage Device, Percutaneous Approach (ICD-10-PCS; 2022-03-03)
PROC: 0DBN0ZZ Excision of Sigmoid Colon, Open Approach (ICD-10-PCS; principal; 2022-03-03 08:00)
PROC: 02HV33Z Insertion of Infusion Device into Superior Vena Cava, Percutaneous Approach (ICD-10-PCS; 2022-03-03 08:00)
PROC: 3E0T3BZ Introduction of Anesthetic Agent into Peripheral Nerves and Plexi, Percutaneous Approach (ICD-10-PCS; 2022-03-03 08:00)
DX: K57.20 Diverticulitis of large intestine with perforation and abscess without bleeding (principal); K65.1 Peritoneal abscess; E46 Unspecified protein-calorie malnutrition; E66.9 Obesity, unspecified; G62.9 Polyneuropathy, unspecified; Z20.822 Contact with and (suspected) exposure to COVID-19; K59.00 Constipation, unspecified; E87.6 Hypokalemia; Z98.890 Other specified postprocedural states; Z95.828 Presence of other vascular implants and grafts; Z85.42 Personal history of malignant neoplasm of other parts of uterus; Z90.710 Acquired absence of both cervix and uterus; Z79.899 Other long term (current) drug therapy; Z79.891 Long term (current) use of opiate analgesic; Z68.39 Body mass index [BMI] 39.0-39.9, adult
CPT/HCPCS: 00790; 36415; 64488; 71045; 74177; 76942; 80048; 80053; 81001; 83690; 83735; 84100; 85025; 87040; 87502; 93005; 93010; 94760; A9270; C1751; C9803; J0131; J0330; J0692; J0694; J0744; J1100; J1160; J1170; J1644; J1650; J1720; J1885; J2250; J2270; J2405; J2704; J2765; J2795; J3010; J3475; J3480; J7030; J7060; J7121; Q9967; U0003

== ENCOUNTER 2022-03-16 14:29 | Emergency (ER) | payer OTHER ==
[~2022-03-16] VITALS: Ht 167.6 cm; Wt 106.6 kg
[~2022-03-16 14:29] MED LIST changes: +ACETAMINOPHEN325 M1 PO; +ADVIL200 MG PO; +AMOX TR-K CLV1 EAC1 PO; +CIPRO500 MG PO; +FLAGYL375 MG PO; +METRONIDAZOLE250 MG PO; +METRONIDAZOLE500 MG PO
--- OUTSIDE RECORDS SUMMARY | 2022-03-16 14:32 | XMS ---
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 - 2 Visits in 30 Days CARE PROVIDERS There are no care providers on record at this time. Radha has no Care Guidelines for this patient. Ketan VISIT COUNT (12 MO.) 2 [facility] TOTAL 2 NOTE: Visits indicate total known visits. 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 - Presence of other vascular implants and grafts - Obesity, unspecified - Body mass index [BMI] 39.0-39.9, adult - Hypokalemia - Contact with and (suspected) exposure to COVID-19 - Unspecified protein-calorie malnutrition - Polyneuropathy, unspecified - Constipation, unspecified - Other specified postprocedural states - Body mass index [BMI] 39.0-39.9, adult - Other specified postprocedural states - Other retirement (current) drug therapy - Diverticulitis of large intestine with perforation and abscess without bleeding - Presence of other vascular implants and grafts - Personal history of malignant neoplasm of other parts of uterus - Polyneuropathy, unspecified - Acquired absence of both cervix and uterus - Peritoneal abscess - Constipation, unspecified - Obesity, unspecified - snf (current) use of opiate analgesic - Peritoneal abscess - Unspecified protein-calorie malnutrition - Personal history of malignant neoplasm of other parts of uterus - snf (current) use of opiate analgesic - Acquired absence of both cervix and uterus [email or web address]
== END 2022-03-16 17:25 | disposition home or self-care (01) ==
LOC: ED 14:29
DX: U07.1 COVID-19 (principal); Z79.899 Other long term (current) drug therapy
CPT/HCPCS: 96374; 99283-25